=== PATIENT | female | born 1970 | race Caucasian/White ===

== ENCOUNTER 2017-06-23 19:07 | Emergency (ER) | payer SELFPAY ==
[2017-06-23 19:07] VITALS: BMI 36.5
--- NOTE | 2017-06-23 20:25 | ED PDOC ---
HPI: General Adult Time Seen by Provider: 06/23/17 19:35 Chief Complaint (Nursing): Flu-like Symptoms Chief Complaint (Provider): Flu-like Symptoms History Per: Patient History/Exam Limitations: no limitations Onset/Duration Of Symptoms: Other (x 1 week) Current Symptoms Are (Timing): Still Present Additional Complaint(s): Ms. Ruiz is a 46 year old female who presents to the emergency department for cough, fever and body aches, ongoing for 1 week. Patient reports dry cough. Patient denies taking anything for the cough. (+) known sick contacts at home ( including her 2 year old daughter) has same symptoms. No other chronic illnesses at this time. PMD: No Family Provider Past Medical History Reviewed: Historical Data, Nursing Documentation, Vital Signs Vital Signs: Last Vital Signs Temp 98.2 F 06/23/17 19:25 Pulse 68 06/23/17 19:25 Resp 16 06/23/17 19:25 BP 140/68 06/23/17 19:25 Pulse Ox 100 06/23/17 20:36 - Medical History PMH: HTN (no meds) - Surgical History Surgical History: (x 3) - Family History Family History: States: Unknown Family Hx - Social History Current smoker - smoking cessation education provided: No - Immunization History Hx Tetanus Toxoid Vaccination: No Hx Influenza Vaccination: No Hx Pneumococcal Vaccination: No - Home Medications Home Medications: Ambulatory Orders Medication Instructions Recorded Vitamins [ 1 1 tab PO DAILY 11/05/14 Vitamin] Ibuprofen [Motrin Tab] 600 mg PO Q8 PRN #30 tab 06/23/17 guaiFENesin/Dextromethorphan 10 ml PO Q6H PRN #240 ml 06/23/17 [Guaifenesin-Dm 10 MG/5 Ml-100 MG/5 Ml 5 Ml] - Allergies Allergies/Adverse Reactions: Allergies Allergy/AdvReac Type Severity Reaction Status Date / Time No Known Allergies Allergy Verified 09/19/14 16:55 Review of Systems ROS Statement: Except As Marked, All Systems Reviewed And Found Negative Constitutional: Positive for: Fever, Other (Body aches) Respiratory: Positive for: Cough (Dry) Neurological: Positive for: Headache Physical Exam - Reviewed Nursing Documentation Reviewed: Yes Vital Signs Reviewed: Yes - Physical Exam Appears: Positive for: Non-toxic, In Acute Distress (tired appearing) Head Exam: Positive for: ATRAUMATIC, NORMOCEPHALIC Skin: Positive for: Warm, Dry Eye Exam: Positive for: EOMI, PERRL ENT: Negative for: Pharyngeal Erythema, Tonsillar Exudate Neck: Positive for: Painless ROM, Supple Cardiovascular/Chest: Positive for: Regular Rate, Rhythm, Chest Non Tender. Negative for: Murmur Respiratory: Positive for: Normal Breath Sounds. Negative for: Rales, Wheezing , Respiratory Distress Gastrointestinal/Abdominal: Positive for: Soft. Negative for: Tenderness Back: Positive for: Normal Inspection. Negative for: Decreased ROM Extremity: Positive for: Normal ROM. Negative for: Deformity Lymphatic: Negative for: Adenopathy Neurologic/Psych: Positive for: Alert. Negative for: Motor/Sensory Deficits - Laboratory Results Urine POC: Negative - ECG O2 Sat by Pulse Oximetry: 100 (RA) Pulse Ox Interpretation: Normal Medical Decision Making Medical Decision Making: Time: 20:03 Impression(s): Influenza-like illness r/o pneumonia Plan: - ED Urine - Chest X-Ray - Influenza A B Stat (-) for Influenza A/B (But daughter was positive) Unremarkable CXR Scribe Attestation: Documented by Scottie Levi, acting as a scribe for Aidee Escobar MD Provider Scribe Attestation: All medical record entries made by the Scribe were at my direction and personally dictated by me. I have reviewed the chart and agree that the record accurately reflects my personal performance of the history, physical exam, medical decision making, and the department course for this patient. I have also personally directed, reviewed, and agree with the discharge instructions and disposition. Disposition - Clinical Impression Clinical Impression: Influenza Counseled Patient/Family Regarding: Studies Performed, Diagnosis, Need For Followup, Rx Given - Disposition Referrals: [facility] [Outside] Disposition: Routine/Home Disposition Time: 21:30 Condition: STABLE Additional Instructions: REST AND DRINK PLENTY OF HYDRATING FLUIDS Prescriptions: guaiFENesin/Dextromethorphan [Guaifenesin-Dm 10 MG/5 Ml-100 MG/5 Ml 5 Ml] 10 ml PO Q6H PRN #240 ml PRN Reason: cough Ibuprofen [Motrin Tab] 600 mg PO Q8 PRN #30 tab PRN Reason: Pain, Moderate (4-7) Instructions: Influenza (ED)
[2017-06-23 22:00] VITALS: BP 139/81; PULSE 78; RESP 17; TEMP 98.3; O2SAT 99
--- NOTE | 2017-06-24 10:29 | RAD ---
HISTORY: cough fever COMPARISON: No prior. TECHNIQUE: Chest PA and lateral FINDINGS: LUNGS: No active pulmonary disease. PLEURA: No significant pleural effusion identified. No pneumothorax apparent. CARDIOVASCULAR: Normal. OSSEOUS STRUCTURES: Minor multilevel degenerative spondylosis. VISUALIZED UPPER ABDOMEN: Normal. OTHER FINDINGS: None. IMPRESSION: No active disease.
== END 2017-06-23 21:55 | disposition home or self-care (01) ==
LOC: H.ER 19:07
DX: R05 Cough (principal); R50.9 Fever, unspecified; I10 Essential (primary) hypertension